=== PATIENT | female | born 1950 ===

== ENCOUNTER 2019-11-05 16:04 | Inpatient (IN) | payer MEDICARE ==
[2019-11-05 17:17] VITALS: BP 109/53
[2019-11-05] MEDS ORDERED: Magnesium Hydroxide (MOM) 30 mL UDC PO PRN (17:19)
[2019-11-05] MEDS ORDERED: Maalox 30 mL Cup PO PRN (17:19)
[2019-11-05] MEDS: Atorvastatin Calcium 10 MG TAB PO SCH (21:10)
[2019-11-06] MEDS: Multivitamin Tab PO SCH (08:11)
--- NOTE | 2019-11-06 09:45 | Psychiatric Evaluation ---
DATE OF SERVICE: 11/05/2019 PSYCHIATRIC INITIAL EVALUATION AND MENTAL STATUS EXAM AGE: 69. SEX: Female. PHYSICIAN: Shant Lagunas M.D., M.P.H. CHIEF COMPLAINT: 5150 hold for grave disability. HISTORY OF PRESENT ILLNESS: The patient is a 69-year-old old female with history of what seems to be bipolar disorder. I evaluated the patient in [facility] with the request of staff there. According to staff, the patient has been locking herself in the bathroom and thinking that there is pollution in the air coming from the vent. She also has been thinking that the air is contaminated. The patient also has been refusing to get out of the bathroom and has been locking herself for long period of time. The patient also has been depressed and restless and not able to follow directions. She also has been refusing to take any psychotropic medications. She also has been oppositional to staff. PAST PSYCHIATRIC HISTORY: The patient has history of what seems to be bipolar disorder, but the patient has not been taking any psychotropic medications lately. PAST MEDICAL HISTORY: The patient has diabetes mellitus as well as hypertension. SOCIAL HISTORY: The patient is . She denies any alcohol or any street drug use. She denies any legal issues. She has two adult children and three grandchildren. ALLERGIES: No known allergies. MENTAL STATUS EXAMINATION: The patient appears her stated age. Anxious. Cooperative. Thought processes are mainly goal directed. The patient denies any auditory or visual hallucinations, but she is suspicious and severely paranoid. The patient denies any thoughts of suicide or homicide. The patient is alert and oriented to time, place, person and situation. Intact immediate, recent and remote memories. Poor insight and poor judgment. She seems to be of average intelligence based on her verbal ability. ASSESSMENT: PRIMARY DIAGNOSIS: Bipolar disorder, manic episode, severe, with psychotic features. TREATMENT PLAN: We will continue to monitor behavior and condition closely. Also, we will start individual as well as milieu psychotherapy. Also, we will add Abilify and we will adjust the dose. ESTIMATED LENGTH OF STAY: 5-7 days. PATIENT'S STRENGTHS AND WEAKNESSES: The patient seems to be in relatively fair health. Weaknesses are her ineffective coping and her paranoia and delusions. AFTER DISCHARGE PLAN: The patient will return to [facility] unless her condition needs to [facility]. At the same time, we will continue to monitor behavior and followup. JOB# [id number]
--- NOTE | 2019-11-06 09:59 | Consultation ---
DATE OF CONSULTATION: 11/05/2019 INTERNAL MEDICINE CONSULTATION HISTORY OF PRESENT ILLNESS: The patient is a 69-year-old female patient of mine, resident of [facility], sent to [facility]. CURRENT MEDICAL PROBLEMS: Include diabetes mellitus, hypertension, hyperlipidemia, peptic ulcer disease, gastritis, coronary artery disease. SOCIAL HISTORY: No prior history of smoking or alcohol abuse. FAMILY HISTORY: Not available. OBSTETRIC HISTORY: P2+0, patient is postmenopausal. REVIEW OF SYSTEMS: No chest pain, no short of breath, no nausea, no vomiting, no abdominal pain. PHYSICAL EXAMINATION: GENERAL: Average female in no obvious respiratory distress. VITAL SIGNS: Include a blood pressure of 110/70, heart rate 80, respiration rate of 18. SKIN: Show no cellulitis. HEENT: Normal conjunctivae. NECK: Supple. LUNGS: Clear. HEART: First and second normal. ABDOMEN: Soft. Bowel sounds are present and good. EXTREMITIES: Show arthritis. NEUROLOGIC: The patient has no focal deficit. HOME MEDICINES: Include patient taking metformin, atorvastatin, losartan. ADMITTING DIAGNOSES: Include diabetes mellitus type 2, angiopathy, neuropathy, hypertension, coronary artery disease, peptic ulcer disease, gastritis, arthritis, hyperlipidemia. Medication reconciliation is supposed to be done by [facility] staff. Thank you very much. JOB# [id number]
--- NOTE | 2019-11-06 17:22 | Progress Notes ---
DATE: 11/06/2019 SUBJECTIVE: The patient is a 69-year-old female with past medical history significant for diabetes mellitus, diabetic angiopathy, neuropathy, hypertension, hyperlipidemia, peptic ulcer disease, arthritis. No new symptom. Blood sugars are being monitored. OBJECTIVE: VITAL SIGNS: Stable. LUNGS: Clear. HEART: First and second normal. ABDOMEN: Soft. Bowel sounds are present and good. EXTREMITIES: Show arthritis. NEUROLOGIC: The patient has no focal deficit. Psych consult reviewed. Nurses are supposed to monitor blood sugar and med reconciliation. JOB# [id number]
[2019-11-06] MEDS: Atorvastatin Calcium 10 MG TAB PO SCH (21:22)
[2019-11-07] MEDS: Multivitamin Tab PO SCH (08:47)
--- NOTE | 2019-11-07 10:36 | Progress Notes ---
DATE: 11/07/2019 INTERNAL MEDICINE CONSULTATION FOLLOWUP The patient is a 69-year-old female. CURRENT MEDICAL PROBLEMS: Include diabetes mellitus, diabetic angiopathy, neuropathy, hypertension, hyperlipidemia, coronary artery disease, peptic ulcer disease, arthritis. No new symptoms. OBJECTIVE: VITAL SIGNS: Stable. LUNGS: Clear. HEART: First and second heart sounds normal. ABDOMEN: Soft. Bowel sounds are active. EXTREMITIES: Show arthritis. NEUROLOGIC: The patient has no additional focal motor deficit. Psych consult reviewed. Continue current medical management. [facility]# [id number]
--- NOTE | 2019-11-07 17:53 | Progress Notes ---
DATE: 11/07/[address] Shant Lagunas MD, MPH SUBJECTIVE: The patient was interviewed. The case was discussed with staff, the chart and records were reviewed. Per the staff, the patient has had anger episodes and delusional thoughts. The patient was witnessed yelling and screaming at other patients and staff in the uribe hallway prior to engagement for the interview. The patient attempted to engage the patient for the interview; however, she was extremely angry. She is demanding to leave. When attempting to discuss the statements on her home goals including locking herself in the bathroom and a feeling that she is being poisoned through the air vent through with pollution, the patient got increasingly angry and the interview had to be terminated due to her escalating behavior and safety reasons. MENTAL STATUS EXAMINATION: The patient is an elderly female sitting at the edge of her hospital bed. She had an angry appearance. Her speech is with an angry tone. Her thought process is loose. Unable to assess for suicidal or homicidal thoughts, but she has been verbally abusive towards others. In addition, she appears to be internally preoccupied. She appears to be paranoid that she is being poisoned. She is alert and oriented to person. She also understands she is in the hospital. Her insight, judgment and impulse control appear to be quite poor at this time. ASSESSMENT: This is a 69-year-old female, admitted to [facility], currently on a 5150 hold due to locking herself in the bathroom at her previous facility and thinking she is being poisoned with pollution through the air vent causing agitation and poor behavior. The patient at this time has increasing anger episodes. She is yelling at staff. She is angry with this provider. She has escalating anger. She is unable to cooperate with simple interview and she had no plan for self-care at this time. PLAN: We will continue the patient's acute hospitalization. We will continue her medications as prescribed. We will encourage the patient to verbalize her needs and participate in group and milieu therapy. JOB# [id number] AYUSH
[2019-11-07] MEDS: Atorvastatin Calcium 10 MG TAB PO SCH (21:06)
[2019-11-08] MEDS: Multivitamin Tab PO SCH (08:27)
--- NOTE | 2019-11-08 17:32 | Progress Notes ---
DATE: 11/08/2019 SUBJECTIVE: The patient was interviewed. Case was discussed with staff. Chart and records were reviewed. Per the staff, the patient has a fair hygiene. However, she has been delusional. She has been hallucinating. She has been very irritable and verbally aggressive at times. She needs constant redirection very upset overall, also documented as being suspicious and paranoid. The patient is in a very angry mood. She has no insight into why she is in the hospital, demanding to be discharged, but has no plan of self-care, has been refusing medications, not willing to engage in discussion about her symptoms or her medications and appears to be with increasing irritability and anger. MENTAL STATUS EXAMINATION: Elderly female sitting in the day room chair, appears angry with constricted affect. Thought process is loose. Unable to assess for suicidal or homicidal thoughts. Appears to be internally preoccupied, paranoid of her environment, paranoid of being poisoned. Alert and oriented to person, also understands she is in the hospital; otherwise, not able to elaborate much more location. In addition, she is not oriented to date and not oriented to situation. Her insight, judgment and impulse control appear to be quite poor at this time. ASSESSMENT: A 69-year-old female admitted to [facility], currently on a hold due to locking herself at her previous facility. Also, delusional about aliens. Also, delusions about being poisoned from pollution from the air vents. The patient at this time continues with severe mood swings, anger episodes. Continues to be responding to internal stimuli with bizarre delusions and overall poor insight to her condition, needing constant redirection by the staff. PLAN: We will continue the patient's acute hospitalization. We will transition the patient on to a 14-day hold for grave disability. We will also encourage the patient to continue her medications as prescribed, which the patient has been refusing, will also encourage the patient to verbalize her needs and participate in group and milieu therapy. JOB# [id number]
[2019-11-08] MEDS: Atorvastatin Calcium 10 MG TAB PO SCH ×2 (21:14→21:56)
--- NOTE | 2019-11-09 02:46 | Progress Notes ---
DATE: 11/08/2019 HISTORY OF PRESENT ILLNESS: The patient is a 69-year-old female, currently in [facility]. CURRENT MEDICAL PROBLEMS: Include diabetes mellitus, diabetic angiopathy, hypertension, hyperlipidemia, coronary artery disease, peptic ulcer disease, gastritis, arthritis. Blood sugars are being monitored. No new symptoms. OBJECTIVE: VITAL SIGNS: Stable. LUNGS: Clear. HEART: First and second heart sounds normal. ABDOMEN: Soft. Bowel sounds present and good. EXTREMITIES: Show arthritis. NEUROLOGIC: No focal motor deficit. PLAN: Continue current medical management. Psych consult reviewed. JOB# [id number]
[2019-11-09] MEDS: Multivitamin Tab PO SCH (08:20)
--- NOTE | 2019-11-09 09:48 | Progress Notes ---
DATE: 11/09/2019 SUBJECTIVE: The patient is a 69[facility]. Current medical problems include diabetes mellitus, hypertension, hyperlipidemia, coronary artery disease, peptic ulcer disease, arthritis. No new symptoms. Blood sugar being monitored. OBJECTIVE: VITAL SIGNS: Stable. LUNGS: Clear. HEART: First and second heart sounds normal. ABDOMEN: Soft. Bowel sounds present and good. No tenderness. EXTREMITIES: Show arthritis. NEUROLOGIC: The patient has no additional focal motor deficit. MEDICAL DIAGNOSES: Remain same. PLAN: Psych consult reviewed. JOB# [id number]
--- NOTE | 2019-11-09 14:42 | Progress Notes ---
DATE: 11/09/2019 SUBJECTIVE: Chart was reviewed and the patient interviewed. Also discussed the patient's condition with the staff and reviewed records and labs. The patient is still suspicious and paranoid and delusional. The patient also is still easily agitated and irritable and angry mood. She also is still having mood swings. The patient also is still uncooperative at times and she refused to have blood work done this morning. On the other hand, the patient is compliant with taking her medications with no side effects of medications. Patient's gait is steady and vital signs are stable and no new labs available for review MENTAL STATUS EXAMINATION: Anxious. Restless. Irritable mood and thought processes are circumstantial with occasional flight of ideas. ASSESSMENT: The patient is still psychotic and agitated. TREATMENT PLAN: Continue to monitor behavior and condition closely. Also, increase Abilify to 15 mg at bedtime. Also, we will talk to the sheep farm manager of the her facility in [place] to discuss further treatment options and further treatment plans ESTIMATED LENGTH OF STAY: 2-4 days. REASON FOR CONTINUED HOSPITAL STAY: The patient is still agitated and psychotic and needs close monitoring. JOB# [id number]
[2019-11-09] MEDS: Atorvastatin Calcium 10 MG TAB PO SCH (20:36)
--- NOTE | 2019-11-10 07:05 | Progress Notes ---
DATE: 11/10/2019 SUBJECTIVE: Chart was reviewed and the patient interviewed. Also discussed the patient's condition with the staff and reviewed records and labs. The patient is still delusional and she thinks that people are stealing her money and stealing her belongings. The patient also is restless and anxious and she is still having severe mood swings. She also still easily agitated and easily irritable. She also refused to take Abilify yesterday, although she did take it in the first few days and she is in denial of her problem. Otherwise, the patient is agitated and in angry mood. The patient's gait is steady. Vital signs are stable and no new labs available for review. MENTAL STATUS EXAMINATION: Unkempt. Angry. Irritable mood. Thought processes are circumstantial with flight of ideas. ASSESSMENT: The patient is still exhibiting manic behavior and agitated. TREATMENT PLAN: I spoke with the manager advanced in [place] and they will not accept the patient back unless if she takes long-acting injectable. Recommend that the patient take Abilify Maintena, but the patient is resisting at this time, but we will try to convince her to take Abilify Maintena injection. At the same time, we will continue to monitor her behavior and continue to follow up closely ESTIMATED LENGTH OF STAY: 2-4 days. REASON FOR CONTINUED HOSPITAL STAY: The patient is still agitated and confused and she is still paranoid and delusional. JOB# [id number]
[2019-11-10] MEDS: Multivitamin Tab PO SCH (08:23)
--- NOTE | 2019-11-10 10:52 | Progress Notes ---
DATE: 11/10/2019 INTERNAL MEDICINE CONSULTATION FOLLOWUP SUBJECTIVE: The patient is a 69-year-old female, admitted to [facility]. Current medical problems include diabetes mellitus, hypertension, hyperlipidemia, coronary artery disease, peptic ulcer disease, gastritis, arthritis. No new symptoms. OBJECTIVE: VITAL SIGNS: Stable. LUNGS: Clear. HEART: First and second heart sounds normal. ABDOMEN: Soft. Bowel sounds present and good. EXTREMITIES: Show arthritis. NEUROLOGIC: The patient has no focal deficit. Psych consult reviewed. Continue current medical management. JOB# [id number]
--- NOTE | 2019-11-11 08:00 | Progress Notes ---
DATE: 11/11/2019 PSYCHIATRIC PROGRESS NOTE SUBJECTIVE: Chart was reviewed and the patient interviewed. Also discussed the patient's condition with the staff and reviewed records and labs. The patient is still psychotic and is still withdrawn. The patient also is still easily agitated and in irritable mood and she is still suspicious and paranoid. The patient also is still restless and anxious. Otherwise, the patient is still refusing to take Abilify yesterday and today for no apparent reason except that the patient thinks that "I am when I took Abilify in the foot." The patient did take Abilify for several days and has no side effects of it, except that she does not think that she has any psychiatric issues or any psychiatric problems. The patient's gait is steady. Vital signs are stable and no new labs are available for review. MENTAL STATUS EXAMINATION: The patient appears her stated age. Anxious. Flat affect. In a depressed mood. Thought processes are circumstantial with flight of ideas. ASSESSMENT: The patient is still anxious and is still in a depressed mood and is still suspicious and paranoid. TREATMENT PLAN: Waiting to give the patient Abilify Maintena injection hopefully today. Placement does not want to take her back unless if she takes the Abilify Maintena or any long-acting injectable. Also, the patient is still in angry and in irritable mood and easily agitated. ESTIMATED LENGTH OF STAY: 1-3 days. REASON FOR CONTINUED HOSPITAL STAY: The patient is still psychotic and needs close monitoring. JOB# [id number]
[2019-11-11] MEDS: Multivitamin Tab PO SCH (08:15)
--- NOTE | 2019-11-11 10:10 | Consultation ---
DATE OF CONSULTATION: 11/11/2019 INTERNAL MEDICINE CONSULTATION HISTORY OF PRESENT ILLNESS: The patient is a 69-year-old female. Current medical problems include diabetes mellitus, hypertension, hyperlipidemia, coronary artery disease, peptic ulcer disease and arthritis. Blood sugars are fairly stable. No new symptoms. OBJECTIVE: VITAL SIGNS: Stable. LUNGS: Clear. HEART: First and second heart sounds normal. ABDOMEN: Soft. No tenderness. EXTREMITIES: Show arthritis. NEUROLOGIC: The patient has no additional deficit. PLAN: Continue current medical management. Psych consult reviewed. JOB# [id number]
--- NOTE | 2019-11-12 07:32 | Progress Notes ---
DATE: 11/12/2019 SUBJECTIVE: Chart was reviewed and the patient interviewed. Also discussed the patient's condition with the staff and reviewed records and labs. The patient is still extremely delusional and paranoid and in denial of her problems. The patient said "I don't have psychiatric problems." My primary doctor told me not to take any medications. The patient also is still having issues and problem with her mood, and according to staff, she is still argumentative and she is still in angry mood and at times talking to herself. She also is still pacing and she is still minimizing all her issues. The patient also is still having difficulty complying with taking medications and she has been refusing medications. I tried to start the patient on Abilify Maintena injection. The patient is in denial of her problems and she said that she does not take any medicine because she has no problems. The patient's gait is steady. Vital signs are stable. No new labs available for review. MENTAL STATUS EXAMINATION: Unkempt. Angry. Irritable mood. Thought processes are circumstantial and tangential with flight of ideas. ASSESSMENT: The patient is still psychotic and still needs close monitoring. TREATMENT PLAN: We will continue to monitor behavior and condition closely. Also, continue to work on her irritability and mood swings and also her compliance with taking her medications. ESTIMATED LENGTH OF STAY: 2-4 days. REASON FOR CONTINUED HOSPITAL STAY: The patient is still in irritable and angry mood. The patient also still needs close monitoring and close observation. Also, needs to comply with taking her medications. [facility]# [id number]
[2019-11-12] MEDS: Multivitamin Tab PO SCH (08:29)
--- NOTE | 2019-11-12 10:29 | Progress Notes ---
DATE: 11/12/2019 SUBJECTIVE: The patient is a 69-year-old female. CURRENT MEDICAL PROBLEMS: Include diabetes mellitus, hypertension, coronary artery disease, peptic ulcer disease, gastritis, arthritis, hyperlipidemia. Blood sugars are stable. No new symptoms. OBJECTIVE: VITAL SIGNS: Stable. LUNGS: Clear. HEART: First and second heart sounds normal. ABDOMEN: Soft. Bowel sounds present and good. EXTREMITIES: Show arthritis. NEUROLOGIC: No focal motor deficit. Psych consult reviewed. Continue current medical management. JOB# [id number]
[2019-11-13] MEDS: Multivitamin Tab PO SCH (08:45)
--- NOTE | 2019-11-13 10:03 | Progress Notes ---
DATE: 11/13/2019 SUBJECTIVE: Chart was reviewed and the patient interviewed. Also discussed the patient's condition with the staff and reviewed records and labs. The patient is extremely paranoid and she is still restless and in irritable and angry mood. The patient also is still easily agitated. The patient also is interacting minimally with peers and with others. She also is having severe mood swings. Patient's gait is steady. Vital signs are stable and no new labs available for review. The patient has a rash in top of her forehead. It is not clear if this rash can be herpes or shingles and Dr. Osuna notified to evaluate the patient. MENTAL STATUS EXAMINATION: The patient is angry. Restless. In irritable mood. Thought processes are circumstantial with flight of ideas. TREATMENT PLAN: We will continue to monitor behavior and condition closely. Also, continue to follow up with her psychosis. Also, the patient refused to take Abilify Maintena injection and refusing to take medications at this time and we will continue working with the care home in regard to her compliance with taking her medications. JOB# [id number]
--- NOTE | 2019-11-13 12:27 | Consultation ---
DATE OF CONSULTATION: 11/13/2019 INTERNAL MEDICINE CONSULTATION HISTORY OF PRESENT ILLNESS: The patient is a 69-year-old female with past medical history significant for diabetes mellitus, hypertension, coronary artery disease, peptic ulcer disease, gastritis, arthritis, hyperlipidemia. OBJECTIVE: VITAL SIGNS: Stable. LUNGS: Clear. HEART: First and second present. ABDOMEN: Soft. Bowel sounds present and good. EXTREMITIES: Show arthritis. NEUROLOGIC: No additional deficit. A Wound Care consult requested for. Psych consult reviewed. Continue current medical management. JOB# [id number]
[2019-11-14] MEDS: Multivitamin Tab PO SCH (08:29)
[2019-11-14] MEDS: Triple Antibiotic 0.94 gm Pkt TP SCH (08:31)
[2019-11-14] MEDS: Triamcinolone Acetonide 0.1% Cream 15 gm TP SCH ×2 (09:35→17:08)
--- NOTE | 2019-11-14 10:18 | Progress Notes ---
DATE: 11/14/2019 SUBJECTIVE: A 69-year-old female with history of possible bipolar disorder, [facility]. The patient has been locking herself in the bathroom, believing there is pollution in the air coming from the vents, leaking of air is contaminated, refusing to get out of the bathroom, locking herself in there for a long time, depressed, restless. On exam, difficult to interview. The patient mostly resistive, paranoid, not really wanting to engage with me, although she is calm. Per Dr. Lagunas's notes yesterday, which I did spend time reviewing, she is paranoid, restless, irritable, still with ongoing mood swings. Dr. Osuna following along as well. Fair sleep. Nursing is noting that she slept pretty well. Fair orientation. The patient refusing her medications unfortunately. MENTAL STATUS EXAMINATION: Stated age. Sleeping, but arousable, calm, but with ongoing psychotic symptoms, delusions, paranoias. No overt SI or HI. Poor insight, poor judgment, refusing her medications, Abilify. PLAN: We will continue to monitor. Complex case given her medication refusals ongoing symptoms. Multiple medical problems including diabetes, hypertension. We will encourage better med compliance. [facility]# [id number]
--- NOTE | 2019-11-14 11:05 | Progress Notes ---
DATE: 11/14/2019 INTERNAL MEDICINE CONSULTATION The patient is a 69-year-old female at [facility]. CURRENT MEDICAL PROBLEMS: Include diabetes mellitus, hypertension, hyperlipidemia, peptic ulcer disease, gastritis, arthritis. CHIEF COMPLAINT: No new symptoms. OBJECTIVE: VITAL SIGNS: Stable. LUNGS: Clear. HEART: First and second heart sounds normal. ABDOMEN: Soft. Bowel sounds are present and good. EXTREMITIES: Show arthritis. NEUROLOGIC: The patient has no focal motor deficit. Medicines reviewed. PLAN: Psych consult reviewed. Continue current medical management. JOB# [id number]
--- NOTE | 2019-11-15 07:15 | Progress Notes ---
DATE: 11/15/2019 SUBJECTIVE: A 69-year-old female, possibly bipolar disorder, coming in [facility] believing that the air is contaminated. The patient is still somewhat delusional, psychotic, still stating that she was attacked and "maybe some bugs attacked her face, still believing that the air is dirty, ongoing severe mood swings, agitation, restless, needing a higher level of redirection or prompting and Dr. Osuna is aware, trying to treat but the patient is convinced that possibly mosquitos attacked her. Currently on dosing of Abilify. Ongoing symptoms, psychotic symptoms. Case was somewhat complicated by this skin issue, difficult to treat symptoms. Time was spent speaking with the patient, review of nursing notes. The patient does also have diabetes, hypertension, hyperlipidemia, peptic ulcer disease, gastritis and CAD. On exam, the patient with some skin excoriation on her forehead, rambling, hard to interrupt, tangential. No SI. No HI. Concerns for ongoing delusions. Poor insight, poor impulse control. PLAN: We will continue inpatient monitoring. Continue to adjust and titrate medications. We will slowly increase her dosing of Abilify today to target ongoing delusions, perceptual disturbances and residual psychotic symptoms. [facility]# [id number]
[2019-11-15] MEDS: Triple Antibiotic 0.94 gm Pkt TP SCH (09:11)
[2019-11-15] MEDS: Multivitamin Tab PO SCH (09:14)
[2019-11-15] MEDS: Triamcinolone Acetonide 0.1% Cream 15 gm TP SCH ×2 (09:15→17:32)
--- NOTE | 2019-11-16 07:09 | Progress Notes ---
DATE: 11/16/2019 SUBJECTIVE: Chart was reviewed and the patient interviewed. Also discussed the patient's condition with the staff and reviewed records and labs. The patient continued to be delusional and she is still suspicious and paranoid. The patient also is still restless and she still has difficulty with her moods and she is still easily irritable and easily agitated. The patient also is still suspicious and paranoid and she is minimizing her issues and her problems. Also, uncooperative with her treatment. The patient still refusing to take Abilify because of her denial and "I have no issues and I do not need psych medications." The patient also still wandering around the unit and easily angry. Otherwise, the patient also is still angry and she is still in irritable mood. The patient's gait is steady. Vital signs are stable. No new labs available for review. MENTAL STATUS EXAMINATION: Anxious. Paranoid. Irritable mood. Suspicious. TREATMENT PLAN: We will continue to monitor behavior and condition closely. Also, we will file for Mario syed. Also, we will continue working on her behavior and we will continue to follow up. JOB# [id number]
[2019-11-16] MEDS: Triple Antibiotic 0.94 gm Pkt TP SCH (08:07)
[2019-11-16] MEDS: Multivitamin Tab PO SCH (08:08)
[2019-11-16] MEDS: Triamcinolone Acetonide 0.1% Cream 15 gm TP SCH ×2 (08:09→17:03)
--- NOTE | 2019-11-16 10:32 | Progress Notes ---
DATE: 11/16/2019 INTERNAL MEDICINE CONSULTATION FOLLOWUP SUBJECTIVE: The patient is a 69-year-old female with past medical history significant for diabetes mellitus, hypertension, hyperlipidemia, peptic ulcer disease, gastritis, arthritis. OBJECTIVE: VITAL SIGNS: Stable. LUNGS: Clear. HEART: First and second heart sounds normal. ABDOMEN: Soft. Bowel sounds present and good. EXTREMITIES: Show arthritis. NEUROLOGIC: No deficit. MEDICAL DIAGNOSES: Remain the same. PLAN: Continue current medical management. [facility]# [id number]
--- NOTE | 2019-11-16 14:39 | Progress Notes ---
DATE: 11/15/2019 SUBJECTIVE: The patient is a 69-year-old female. CURRENT MEDICAL PROBLEMS: Include diabetes mellitus, hypertension, hyperlipidemia, coronary artery disease, peptic ____, arthritis. Blood sugars are being monitored. OBJECTIVE: VITAL SIGNS: Stable. LUNGS: Clear. HEART: First and second heart sounds normal. ABDOMEN: Soft. Bowel sounds are present and good. EXTREMITIES: Show arthritis. NEUROLOGIC: The patient has no focal deficits. Psych consult reviewed. Continue current medical management and other medicine followup. [facility]# [id number]
[2019-11-17] MEDS: Multivitamin Tab PO SCH (08:33)
[2019-11-17] MEDS: Triple Antibiotic 0.94 gm Pkt TP SCH (08:33)
[2019-11-17] MEDS: Triamcinolone Acetonide 0.1% Cream 15 gm TP SCH ×2 (08:46→17:06)
--- NOTE | 2019-11-17 10:10 | Progress Notes ---
DATE: 11/17/2019 SUBJECTIVE: The patient is a 69-year-old female. CURRENT MEDICAL PROBLEMS: Include diabetes mellitus, hypertension, hyperlipidemia, peptic ulcer disease, gastritis, arthritis. OBJECTIVE: VITAL SIGNS: Stable. LUNGS: Clear. HEART: First and second normal. ABDOMEN: Soft. Bowel sounds good. EXTREMITIES: Show arthritis. NEUROLOGIC: The patient has no focal deficit. LABORATORY STUDIES: Blood sugars are stable. Psych consult reviewed. Continue current medical management. [facility]# [id number]
--- NOTE | 2019-11-17 15:41 | Progress Notes ---
DATE: 11/17/2019 SUBJECTIVE: Chart was reviewed and the patient interviewed. Also discussed the patient's condition with the staff and reviewed records and labs. The patient is still in irritable and angry mood. The patient also is still delusional and paranoid and talking about car [facility] and also she is still thinking that the [facility] her back as soon as possible. Although, I explained to her inability to return because she is not taking long-acting injectable and she is not taking mood stabilizer, which is Abilify. The patient also is still in irritable and angry mood and she is still easily agitated and irritable with the staff, also still demanding. Today, the patient even refused to take some of her other medications other than the psychotropic medications because of her paranoia and her delusions. The patient gait is steady. Vital signs are stable and no new labs available for review MENTAL STATUS EXAMINATION: Anxious. Restless. Mood not irritable nor agitated. She is delusional and paranoid. Also, demanding and unable to provide any safe plan for self-care. ASSESSMENT: The patient is still psychotic and considered to be gravely disabled. TREATMENT PLAN: We will continue to monitor behavior and her condition closely. Also, we will continue working on her irritability and mood swings ESTIMATED LENGTH OF STAY: 2-4 days. REASON TO CONTINUE HOSPITAL STAY: I filed [employer] petition yesterday. Waiting for the hearing. At the same time, continue working on her irritability and anger and continue to work on her compliance with medications. [facility]# [id number]
[2019-11-18] MEDS: Triple Antibiotic 0.94 gm Pkt TP SCH (08:56)
[2019-11-18] MEDS: Multivitamin Tab PO SCH (08:56)
--- NOTE | 2019-11-18 08:57 | Progress Notes ---
DATE: SUBJECTIVE: Chart was reviewed and the patient interviewed. Also discussed the patient's condition with the staff and reviewed records and labs. The patient continued to be demanding and restless and continued to be in angry and in irritable mood. The patient also is still paranoid and delusional and say things that does not make any sense. The patient also is still demanding to go back to [facility] and tried to explain to the patient that they are not accepting her back unless she takes long-acting injectable, but she is refusing to take Abilify Maintena and saying that "Abilify making me crazy." She was not able to elaborate the meaning of it makes herself crazy. It is way of manipulation or not to take the medicine. The patient also is still wandering around in a slightly confused state and she is still demanding and irritable and restless. She is also paranoid about her surroundings. The patient's gait is steady. Vital signs are stable and no new labs available for review. MENTAL STATUS EXAMINATION: Unkempt. Anxious. Thought process is circumstantial with flight of ideas. The patient also is still suspicious and paranoid about her surroundings. ASSESSMENT: The patient is still psychotic and needs close monitoring and also needs to compliant with medications. TREATMENT PLAN: Continue to monitor behavior and condition closely. Also, continue adjusting psychotropic medications and working on behavioral modification and compliant with taking her medications. JOB# [id number]
[2019-11-18] MEDS: Triamcinolone Acetonide 0.1% Cream 15 gm TP SCH ×2 (09:35→16:53)
--- NOTE | 2019-11-18 14:07 | Consultation ---
DATE OF CONSULTATION: 11/18/2019 INTERNAL MEDICINE CONSULTATION SUBJECTIVE: The patient is a 69-year-old female. CURRENT MEDICAL PROBLEMS: Include diabetes mellitus, hypertension, hyperlipidemia, coronary artery disease, peptic ulcer disease, gastritis, arthritis. Blood sugars are being monitored. No new symptoms. OBJECTIVE: VITAL SIGNS: Stable. LUNGS: Clear. HEART: First and second normal. ABDOMEN: Soft. Bowel sounds good. EXTREMITIES: Show arthritis. NEUROLOGIC: The patient has dementia. PLAN: Psych consult reviewed. Continue current medical management. [facility]# [id number]
--- NOTE | 2019-11-19 07:27 | Progress Notes ---
DATE: 11/19/2019 SUBJECTIVE: Chart was reviewed and the patient interviewed. Also discussed the patient's condition with the staff and reviewed records and labs. The patient is still in denial of her mental illness and she is still easily agitated and in irritable and angry mood. The patient also is still delusional and is still paranoid. She also still has mood swings. She also still is pacing up and down the unit. Otherwise, the patient is still refusing to take Abilify in spite of explaining to her benefits, side effects and alternatives. The patient's gait is steady. Vital signs are stable and no new labs available for review. MENTAL STATUS EXAMINATION: Anxious. Unkempt. Thought process is circumstantial with flight of ideas. ASSESSMENT: The patient is still paranoid and restless. TREATMENT PLAN: We will continue to monitor behavior and condition closely. Also, we will continue to adjusting psychotropic medications. Also, today, we will have a [employer] petition hearing. Hopefully, if approved, then we will start the patient on Abilify Maintena long-acting injectable. ESTIMATED LENGTH OF STAY: 3-5 days. REASON TO CONTINUE HOSPITAL STAY: The patient is still agitated and still needs close monitoring. JOB# [id number]
[2019-11-19] MEDS: Multivitamin Tab PO SCH (09:53)
[2019-11-19] MEDS: Triple Antibiotic 0.94 gm Pkt TP SCH (09:53)
[2019-11-19] MEDS: Triamcinolone Acetonide 0.1% Cream 15 gm TP SCH ×2 (10:00→18:00)
--- NOTE | 2019-11-19 10:20 | Progress Notes ---
DATE: 11/19/2019 INTERNAL MEDICINE CONSULTATION FOLLOWUP SUBJECTIVE: The patient is a 69-year-old female. CURRENT MEDICAL PROBLEMS: Include diabetes mellitus, hypertension, hyperlipidemia, coronary artery disease, peptic ulcer disease, arthritis. Blood sugars are stable. No new symptoms. OBJECTIVE: LUNGS: Clear. HEART: First and second heart sounds normal. ABDOMEN: Soft. Bowel sounds present. EXTREMITIES: Show arthritis. NEUROLOGIC: The patient has no focal motor deficit. Psych consult reviewed. Continue current medical management. JOB# [id number]
[2019-11-19] MEDS ORDERED: ABILIFY 400 MG IM ONE (12:30)
[2019-11-20] MEDS: Multivitamin Tab PO SCH (08:23)
[2019-11-20] MEDS: Triple Antibiotic 0.94 gm Pkt TP SCH (08:23)
[2019-11-20] MEDS: Triamcinolone Acetonide 0.1% Cream 15 gm TP SCH ×2 (08:24→17:12)
--- NOTE | 2019-11-20 13:14 | Progress Notes ---
DATE: SUBJECTIVE: Chart was reviewed and the patient interviewed. Also discussed the patient's condition with the staff and reviewed records and labs. The patient is still anxious, but her affect is brighter. [employer] petition was upheld yesterday and the patient did take her Abilify Maintena injection. The patient denies any side effects. She seems to be more cooperative today, and she is interacting appropriately. The patient denies any hallucinations or delusions. Also, yesterday, I spoke with patient's daughter who is happy that she did take her injection and the patient's daughter talked to me in extensive about her history and her denials before for her treatment, and she is agreeable about all our treatment plans at this time. The patient's gait is steady. Vital signs are stable and no new labs available for review MENTAL STATUS EXAMINATION: The patient is calm and cooperative. Denies any hallucinations, although she seems to be slightly paranoid and still has some disorganized thoughts. ASSESSMENT: The patient seems to be calmer, but still psychotic. TREATMENT PLAN: We will continue monitoring her behavior. Also discussed with field case manager discharge plans. Also planning to talk to the [facility] to discuss with them her discharge and that she already have her longacting injectable, and I will continue to followup. ESTIMATED LENGTH OF STAY: 1-3 days. REASON FOR CONTINUED HOSPITAL STAY: Just to monitor her medications and to work on her placement issue and discharge plans. JOB# [id number]
--- NOTE | 2019-11-20 14:38 | Progress Notes ---
DATE: 11/20/2019 INTERNAL MEDICINE FOLLOWUP SUBJECTIVE: The patient is a 69-year-old female. CURRENT MEDICAL PROBLEMS: Include diabetes mellitus, hypertension, hyperlipidemia, peptic ulcer disease, gastritis, arthritis. OBJECTIVE: VITAL SIGNS: Stable. LUNGS: Clear. HEART: First and second heart sounds normal. ABDOMEN: Soft. Bowel sounds present. EXTREMITIES: Show arthritis. NEUROLOGIC: Dementia. Psych consult reviewed. Continue current medical management. JOB# [id number]
[2019-11-21] MEDS: Multivitamin Tab PO SCH (08:50)
[2019-11-21] MEDS: Triple Antibiotic 0.94 gm Pkt TP SCH (08:50)
--- NOTE | 2019-11-21 11:19 | Progress Notes ---
DATE: 11/21/2019 INTERNAL MEDICINE CONSULTATION SUBJECTIVE: The patient is a 69-year-old female seen at [facility]. CURRENT MEDICAL PROBLEMS: Include diabetes mellitus, hypertension, coronary artery disease, peptic ulcer disease, gastritis, arthritis. OBJECTIVE: VITAL SIGNS: Stable. Blood sugars are stable. LUNGS: Clear. HEART: First and second normal. ABDOMEN: Soft. Bowel sounds are present and good. EXTREMITIES: Show arthritis. NEUROLOGIC: Has no focal deficit. Psych consult reviewed. Continue current medical management. JOB# [id number]
--- NOTE | 2019-11-22 00:07 | Progress Notes ---
DATE: 11/21/2019 Covering for Shant Lagunas M.D. SUBJECTIVE: The patient was interviewed. Case was discussed with staff. Chart and records were reviewed. Per the staff, the patient has been withdrawn, has been isolating to herself, has been depressed and staying in her room, not engaging with others. The patient was visited at bedside. She did not engage at all with the interview. She remained selectively mute. She was not willing to discuss anything about her care. The patient is recently receiving Abilify Maintena injection. No side effects have been noted. MENTAL STATUS EXAMINATION: The patient is lying calmly in her hospital bed. She is uncooperative with the interview. Her thought process is unable to assess. She otherwise has poor insight, judgment and impulse control and she is not cooperative otherwise. ASSESSMENT: The patient is a 69-year-old female, admitted to [facility] since 11/05/2019 after being admitted on a 5150 hold for grave disability. The patient continued with acute psychosis throughout her admission and required [employer] petition. She recently received her Abilify Maintena injection and appears to be tolerating it well and has been demonstrating improvement; however, continues to be withdrawn and isolating to her room. PLAN: We will continue the patient's acute hospitalization. We will continue medications as prescribed. We will encourage the patient to verbalize her needs and participate in group and milieu therapy. JOB# [id number]
[2019-11-22] MEDS: Triple Antibiotic 0.94 gm Pkt TP SCH (09:12)
[2019-11-22] MEDS: Multivitamin Tab PO SCH (09:12)
--- NOTE | 2019-11-22 11:39 | Progress Notes ---
DATE: 11/22/2019 SUBJECTIVE: The patient is a 69-year-old female, currently at [facility]. CURRENT MEDICAL PROBLEMS: Include diabetes mellitus, hypertension, hyperlipidemia, peptic ulcer disease, gastritis, and arthritis. Blood sugars will be monitored. OBJECTIVE: VITAL SIGNS: Stable. LUNGS: Clear. HEART: First and second normal. ABDOMEN: Soft. Bowel sounds present. EXTREMITIES: Show arthritis. NEUROLOGIC: The patient has no focal deficit. Psych consult reviewed. Continue current medical management. JOB# [id number]
--- NOTE | 2019-11-22 22:55 | Progress Notes ---
DATE: 11/22/[address] Shant Lagunas. SUBJECTIVE: The patient was interviewed. Case was discussed with staff. Chart and records were reviewed. Per the staff, the patient has had less agitation, less outbursts, has been sleeping appropriately. Slept about 7 hours last night. The patient was visited at bedside today. The patient continues with mood swings. She is easily irritable during the interview. She continues to have no plan for self-care. The patient, per staff also has been isolating to her room, has been less visible on the unit. She is tolerating her medications well. No side effects noted. MENTAL STATUS EXAMINATION: The patient is sitting up in her hospital bed. She is calm, but irritable. Limited cooperation. Speech is loud. Her thought process is somewhat loose. Denies any suicidal or homicidal thoughts. Denies any hallucinations or paranoia. Alert and oriented to person and place. Insight, judgment and impulse control remain poor, but improved overall. ASSESSMENT: A 69-year-old female admitted to [facility] since 11/05/2019 after being admitted on a 5150 hold for grave disability. The patient was on a [employer] petition. The patient at this time has a reduction of psychosis, reduction of behavioral outburst. However, she continues to remain disorganized, isolated, withdrawn and has no plan for self-care. PLAN: We will continue the patient's acute hospitalization. The patient continues to have no placement options and we are working on this. We therefore will transition the patient onto a 30-day hold for grave disability. We will defer [employer]e petition as the patient appears to be much more adherent with her medications. We will also encourage the patient to verbalize needs and participate in group and milieu therapy. JOB# [id number]
[2019-11-23] MEDS: Multivitamin Tab PO SCH (08:23)
[2019-11-23] MEDS: Triple Antibiotic 0.94 gm Pkt TP SCH (09:09)
--- NOTE | 2019-11-23 17:28 | Discharge Summary ---
DATE OF DISCHARGE: 11/23/2019 AGE: 69. SEX: Female. FINAL DIAGNOSIS AND PRIMARY DIAGNOSIS: Bipolar disorder, manic episode, severe, with psychotic features. REASON FOR HOSPITALIZATION: The patient was admitted to the hospital from [facility] on a 5150 hold because of increased paranoia and delusions and the patient was thinking that the air is polluted and coming through the air condition ducts. She also was staying in the bathroom for hours, staring at the wall in the bathroom. HOSPITAL COURSE: The patient continued to be paranoid and in irritable mood. The patient did take Abilify in the beginning of her hospitalization for a few days, but then she refused to take it. The patient had excuses not to take Abilify. Later on, she started also to refuse some of her other medications as saying that "I'm not sick." She was minimizing and denial of her psychiatric issues and her behavior. She also continued to be paranoid and while interviewed and on the unit. Later on I requested a [employer] petition and [employer] petition was approved. The patient did take Abilify Maintena injection. The patient's affect was brighter. [facility] accepted the patient and that they were not agreeable to take her until she takes a long-acting injectable. PHYSICAL EXAMINATION: With the patient showed no major medical problems while in the hospital. AFTER DISCHARGE PLANS: The patient discharged from the hospital and returned to [facility] with plans to follow her there. The patient also is candidate for partial program. EXPECTED OUTCOME AFTER DISCHARGE: Fair if the patient continued to take her psychotropic medications and follow up with discharge plans, also if she continued to take her medication. JOB# [id number]
== END 2019-11-23 14:50 | DRG 885 ==
LOC: GERO 16:35
PROVIDERS: ADMIT Psychiatry & Neurology Psychiatry; ATTEND Psychiatry & Neurology Psychiatry
DX: F31.2 Bipolar disorder, current episode manic severe with psychotic features (principal); E11.40 Type 2 diabetes mellitus with diabetic neuropathy, unspecified; E11.51 Type 2 diabetes mellitus with diabetic peripheral angiopathy without gangrene; I10 Essential (primary) hypertension; K27.9 Peptic ulcer, site unspecified, unspecified as acute or chronic, without hemorrhage or perforation; M19.90 Unspecified osteoarthritis, unspecified site; I25.10 Atherosclerotic heart disease of native coronary artery without angina pectoris; E78.5 Hyperlipidemia, unspecified
CPT/HCPCS: 82948-90; 83036-90; 90899; G0410; Z7610